=== PATIENT | female | born 1995 | race African-American/Black ===

== ENCOUNTER 2017-02-24 21:50 | Emergency (ER) | payer MEDICAID ==
[2017-02-25] MEDS ORDERED: HYDROcod/ACETAM 5/325 MG TABLET PO STA (02:06)
[2017-02-25] MEDS ORDERED: HYDROcod/ACETAM 5/325 MG TABLET ONE (02:17)
== END 2017-02-25 03:04 | disposition home or self-care (01) ==
DX: R10.84 Generalized abdominal pain (principal)
CPT/HCPCS: 36415; 80048; 81001; 81025; 85025; 87086; 99283; A9270